=== PATIENT | male | born 1970 | race Caucasian/White ===

== ENCOUNTER 2017-07-27 10:14 | Emergency (ER) | payer OTHER ==
[~2017-07-27] VITALS: Ht 172.7 cm; Wt 79.0 kg
[2017-07-27 10:16] VITALS: Ht 172.7 cm; Wt 79.0 kg
--- NOTE | 2017-07-27 11:25 | ERD ---
ER Documentation Chief Complaint Date/Time DATE: 07/27/17 TIME: 11:23 Chief Complaint pt bib self with c/o rectal bleeding since yesterday HPI 47-year-old male presents to emergency department complaining of rectal pain, tenderness and abdominal pain for the past 10 days. Patient states that his abdominal pain is sharp, rating it mild in severity. Patient denies any nausea , vomiting, diarrhea, constipation. He denies any straining. He states that the blood feels that the whole toilet. He has not tried any medications for this ROS All systems reviewed and are negative except as per history of present illness. Medications Home Meds Active Scripts Ibuprofen* (Ibuprofen*) 400 Mg Tablet, 400 MG PO Q6H Y for PAIN, #30 TAB Prov:SANDRA BAUER PA-C 07/27/17 Hydrocortisone Acetate (Anusol-Hc) 25 Mg Supp.rect, 1 SUPP ME QHS Y for HEMORROID PAIN/ITCHING, #12 SUPP.RECT Prov:SANDRA BAUER PA-C 07/27/17 Allergies Allergies: Coded Allergies: No Known Allergy (Unverified , 07/27/17) Physical Exam Vitals Vital Signs Date Time Temp Pulse Resp B/P Pulse Ox O2 Delivery O2 Flow Rate FiO2 07/27/17 13:04 98.1 76 18 132/71 99 Room Air 07/27/17 10:16 97.3 63 18 127/72 97 Physical Exam Const: [] Head: Atraumatic Eyes: Normal Conjunctiva ENT: Normal External Ears, Nose and Mouth. Neck: Full range of motion..~ No meningismus. Resp: Clear to auscultation bilaterally Cardio: Regular rate and rhythm, no murmurs Abd: Soft, tenderPalpation in all quadrants, non distended. Normal bowel sounds Skin: No petechiae or rashes Back: No midline or flank tenderness Ext: No cyanosis, or edema Neur: Awake and alert Psych: Normal Mood and Affect Result Diagram: 07/27/17 1128 07/27/17 1128 Results 24 hrs Laboratory Tests Test 07/27/17 11:28 07/27/17 11:30 White Blood Count 5.710^3/ul Red Blood Count 5.2810^6/ul Hemoglobin 16.9g/dl Hematocrit 48.4% Mean Corpuscular Volume 91.7fl Mean Corpuscular Hemoglobin 32.0pg Mean Corpuscular Hemoglobin Concent 34.9g/dl Red Cell Distribution Width 11.2% Platelet Count 47089^3/UL Mean Platelet Volume 12.0fl Neutrophils % 57.4% Lymphocytes % 32.1% Monocytes % 8.2% Eosinophils % 1.4% Basophils % 0.7% Nucleated Red Blood Cells % 0.0/100WBC Neutrophils # 3.310^3/ul Lymphocytes # 1.810^3/ul Monocytes # 0.510^3/ul Eosinophils # 0.110^3/ul Basophils # 0.010^3/ul Nucleated Red Blood Cells # 0.010^3/ul Sodium Level 141mmol/L Potassium Level 4.4mmol/L Chloride Level 102mmol/L Carbon Dioxide Level 27mmol/L Anion Gap 16 Blood Urea Nitrogen 17mg/dl Creatinine 0.94mg/dl Glucose Level 93mg/dl Calcium Level 9.8mg/dl Total Bilirubin 1.9mg/dl Direct Bilirubin 0.00mg/dl Indirect Bilirubin 1.9mg/dl Aspartate Amino Transf (AST/SGOT) 42IU/L Alanine Aminotransferase (ALT/SGPT) 58IU/L Alkaline Phosphatase 63IU/L Total Protein 8.4g/dl Albumin 5.0g/dl Globulin 3.40g/dl Albumin/Globulin Ratio 1.47 Lipase 175U/L Urine Color YELLOW Urine Clarity CLEAR Urine pH 5.0 Urine Specific [place] 1.024 Urine Ketones NEGATIVEmg/dL Urine Nitrite NEGATIVEmg/dL Urine Bilirubin NEGATIVEmg/dL Urine Urobilinogen NEGATIVEmg/dL Urine Leukocyte Esterase NEGATIVELeu/ul Urine Hemoglobin NEGATIVEmg/dL Urine Glucose NEGATIVEmg/dL Urine Total Protein NEGATIVEmg/dl Procedures/MDM This is a 47-year-old male presenting to the emergency department complaining of generalized abdominal pain and rectal pain with bleeding for the past 10 days.Differentials include but not limited to diverticulosis, anal fissures, internal hemorrhoids. Patient had no evidence of obstruction. No evidence of diverticulitis. Patient appears well and stable to be discharged to follow-up with his primary care physician. Prescription for aurelia-sreedhar and ibuprofen was provided. Discussed return to the ER for any worsening signs or symptoms. He understands and agrees with plan Blood work showed no evidence of leukocytosis or anemia CT abd pelvis no contrast 1. Indeterminate liver lesion measures up to 2.5 cm in the posterior right hepatic lobe. Additional smaller hypodensity at the dome of the liver. Recommend CT or MRI abdomen with contrast per liver mass protocol for further evaluation. 2. Sigmoid diverticulosis without evidence of acute diverticulitis. Departure Diagnosis: Primary Impression: Diverticulosis Additional Impression: Rectal bleeding Condition: Stable SANDRA BAUER PA-C Jul 27, 2017 11:25
[2017-07-27 11:44] LABS: BASOPHILS % 0.7 % (0.0-2.0); EOSINOPHILS # 0.1 10^3/ul (0.0-0.5); EOSINOPHILS % 1.4 % (0.0-7.0); HEMATOCRIT 48.4 % (42.0-52.0); HEMOGLOBIN 16.9 g/dl (14.0-18.0); LYMPHOCYTES # 1.8 10^3/ul (0.8-2.9); LYMPHOCYTES % 32.1 % (15.0-51.0); MEAN CORPUSCULAR HGB CONC 34.9 g/dl (32.0-37.0); MEAN CORPUSCULAR VOLUME 91.7 fl (82.0-101.0); MONOCYTE # 0.5 10^3/ul (0.3-0.9); MONOCYTES % 8.2 % (0.0-11.0); NEUTROPHIL # 3.3 10^3/ul (1.6-7.5); NEUTROPHILS % 57.4 % (39.0-77.0); PLATELET COUNT 191 10^3/UL (140-415); RED BLOOD COUNT 5.28 10^6/ul (4.70-6.10); RED CELL DISTRIBUTION WIDTH 11.2 % (11.5-14.5); WHITE BLOOD COUNT 5.7 10^3/ul (4.8-10.8)
[2017-07-27 11:47] LABS: ADD UMIC NO; UR ASCORBIC ACID NEGATIVE (NEGATIVE); UR BILIRUBIN (Dip) NEGATIVE (NEGATIVE); UR BLOOD (Dip) NEGATIVE (NEGATIVE); UR CLARITY CLEAR (CLEAR); UR COLOR YELLOW (YELLOW); UR GLUCOSE (Dip) NEGATIVE (NEGATIVE); UR KETONES (Dip) NEGATIVE (NEGATIVE); UR LEUKOCYTE ESTERASE (Dip) NEGATIVE Leu/ul (NEGATIVE); UR NITRITE (Dip) NEGATIVE (NEGATIVE); UR SPECIFIC GRAVITY (Dip) 1.024 (1.003-1.030); UR TOTAL PROTEIN (Dip) NEGATIVE (NEGATIVE); UR UROBILINOGEN (Dip) NEGATIVE (NEGATIVE)
--- NOTE | 2017-07-27 12:16 | RADRPT ---
PROCEDURE: CT Abdomen and Pelvis without contrast. CLINICAL INDICATION: Rectal feeding. TECHNIQUE: CT scan of the abdomen and pelvis without contrast was performed on a multidetector hig h-resolution CT scanner. The patient was scanned without intravenous contrast. Coronal and sagittal reformatted images were obtained from the axial source images. Images were reviewed on a high-resol [employer] PACS workstation. The total exam CTDI equals 9.56 mGy and the total exam DLP equals 579.09 mGy -cm. One or more of the following dose reduction techniques were used: Automated exposure control. Adjustment of the mA and/or kV according to patient size. Use of iterative reconstruction technique. COMPARISON: CT abdomen pelvis 04/29/2012 FINDINGS: CT abdomen: The lung bases are clear. The heart size is normal, without pericardial thickening or effusion. There is approximately 2.5 cm ill-defined hypodense lesion in segment 6 of the liver. There is addit ional indeterminate hypodensity measures up to 0.9 cm at the dome of the liver. The spleen is normal in size and homogeneous in density. The stomach is partially collapsed, but is grossly unremarkabl e. The pancreas as visualized is normal. The gallbladder and biliary tree are unremarkable and the re is no evidence for biliary dilatation. The adrenal glands are symmetric and normal. The kidneys are symmetrically unremarkable as well. No renal calculus or obstructive uropathy or mass lesion i s seen. The aorta is of normal caliber. There is no retroperitoneal lymphadenopathy. The sher hepatis hue on is clear. The bowel and mesentery, as visualized, are equally unremarkable. CT pelvis: The small bowel loops situated within the pelvis are unremarkable. There is a small fat containing left inguinal hernia. The appendix is normal. The pelvic organs are normal. The pelvic sidewalls an d inguinal regions are clear. The sigmoid colon and rectum are remarkable for sigmoid diverticulosi s. No mass, lymphadenopathy, or free fluid is seen. No acute inflammation is seen. No osteolytic or osteoblastic lesion is detected. IMPRESSION: 1. Indeterminate liver lesion measures up to 2.5 cm in the posterior right hepatic lobe. Additional smaller hypodensity at the dome of the liver. Recommend CT or MRI abdomen with contrast per liver m ass protocol for further evaluation. 2. Sigmoid diverticulosis without evidence of acute diverticulitis. RPTAT: BB .Saadia Franklin MD, MD Date Time Electronically viewed and signed by .Saadia Franklin MD, MD on 07/27/2017 12:16 .O/
[2017-07-27 12:26] LABS: ALBUMIN/GLOBULIN RATIO 1.47; BILIRUBIN,INDIRECT 1.9 mg/dl (0-1.1); BILIRUBIN,TOTAL 1.9 mg/dl (0.2-1.3); CALCIUM 9.8 mg/dl (8.4-10.2); CREATININE 0.94 mg/dl (0.61-1.24); POTASSIUM 4.4 mmol/L (3.5-5.1); TOTAL PROTEIN 8.4 g/dl (6.1-8.1)
[2017-07-27] MEDS ORDERED: IBUP400T22 PO (12:35)
[2017-07-27] MEDS ORDERED: HYDR25SU23 PR (12:35)
[2017-07-27 13:04] VITALS: BP 132/71; PULSE 76; RESP 18; TEMP 98.1
== END 2017-07-27 13:04 | disposition home or self-care (01) ==
LOC: FTE 10:14
DX: K57.30 Diverticulosis of large intestine without perforation or abscess without bleeding (principal)
CPT/HCPCS: 74176; 80053; 81003; 83690; 85025